=== PATIENT | male | born 1965 | race Two or more races ===

== ENCOUNTER 2024-05-16 14:02 | Emergency (ER) | payer OTHER ==
[~2024-05-16] VITALS: Ht 162.6 cm; Wt 111.8 kg
[2024-05-16 14:13] VITALS: TEMP 98.6
[2024-05-16 15:12] LABS: BASOPHILS % (AUTO) 0.3 % (0.0-2.0); EOSINOPHILS % (AUTO) 1.5 % (1.0-6.0); HEMATOCRIT 45.5 % (41-53); HEMOGLOBIN 15.3 g/dL (13.5-17.5); LYMPHOCYTES # (AUTO) 0.9 K/uL (1.0-4.8); LYMPHOCYTES % (AUTO) 14.9 % (22.0-44.0); MEAN CORPUSCULAR HEMOGLOBIN 30.7 pg (26.0-34.0); MEAN CORPUSCULAR HGB CONC 33.7 G/dL (31.0-37.0); MEAN CORPUSCULAR VOLUME 91 fL (80-100); MONOCYTES # (AUTO) 0.6 K/uL (0.1-1.0); MONOCYTES % (AUTO) 9.2 % (2.0-9.0); NEUTROPHILS # (AUTO) 4.6 K/uL (1.8-7.7); NEUTROPHILS % (AUTO) 74.1 % (40.0-70.0); PLATELET COUNT (AUTO) 162 K/uL (150-450); RED BLOOD CELL COUNT(AUTO) 4.99 MIL/uL (4.50-5.90); RED CELL DISTRIBUTION WIDTH 14.7 % (11.5-14.5); WHITE BLOOD COUNT (AUTO) 6.2 K/uL (4.5-11.0)
[2024-05-16 15:28] LABS: ANION GAP 6 mmol/L (8-16); CALCIUM, TOTAL 8.6 mg/dL (8.8-10.5); CARBON DIOXIDE 27 mmol/L (22-29); CHLORIDE 104 mmol/L (98-107); CREATININE 0.97 mg/dL (0.60-1.30); GLOMERULAR FILTR. RATE CALC > 60 mL/min (>60); GLUCOSE,RANDOM 123 mg/dL (70-110); SODIUM SERUM 137 mmol/L (136-145); TROPONIN I-HIGH SENSITIVITY 5 ng/L (<76); UREA NITROGEN, BLOOD 14 mg/dL (7-18)
[2024-05-16 16:10] VITALS: BP 107/68; PULSE 77; RESP 20; O2SAT 100
[2024-05-16] MEDS: SODIUM CHLORIDE 0.9% 1,000 ML IV ONE (16:32)
== END 2024-05-16 17:56 | disposition home or self-care (01) ==
LOC: EMS 14:02
DX: I95.1 Orthostatic hypotension (principal); I10 Essential (primary) hypertension
CPT/HCPCS: 99285; 96360; 71045; 80048; 84484; 85025; 36415; 93005; J7030